=== PATIENT | male | born 1950 | race Caucasian/White ===

== ENCOUNTER 2020-05-28 08:33 | Day surgery (SDC) | payer MEDICARE, BC ==
[~2020-05-28] VITALS: Ht 182.9 cm; Wt 80.0 kg
[2020-05-28 09:03] LABS: CALC OSMOLALITY 271 mosm/kg (275-300); CALCIUM 9.8 mg/dL (8.5-10.1); CARBON DIOXIDE 27.2 mmol/L (21.0-32.0); CHLORIDE - SERUM 101 mmol/L (98-107); GLUCOSE 93 mg/dL (74-106); POTASSIUM - SERUM 3.9 mmol/L (3.5-5.1); SODIUM 135 mmol/L (136-145); UREA NITROGEN 19 mg/dL (7-18); eGFR NON AFRICAN AMERICAN 78 mL/min (90-120)
[2020-05-28 09:07] LABS: BASOPHILS 0.3 % (0-2); EOSINOPHILS 3.1 % (0-7); HEMOGLOBIN 14.2 g/dL (13.5-17.5); IMMATURE GRANULOCYTES 1.1 % (0-5); LYMPHOCYTES 31.4 % (15-50); MCH 31.3 pg (26.0-34.0); MCV 94.7 fL (80.0-100.0); MEAN PLATELET VOLUME 9.4 fL (7.4-10.4); MONOCYTES 7.9 % (2-11); NEUTROPHILS 56.2 % (40-80); PLATELET COUNT 254 10x3/uL (130-400); RBC 4.54 10x6/uL (4.20-6.10); RDW 16.1 % (11.5-14.5); WBC 12.3 10x3/uL (4.8-10.8)
[2020-05-28] MEDS ORDERED: NORVASC5 MG PO (09:44)
[2020-05-28] MEDS ORDERED: LEVOXYL100 MCG PO (09:45)
[2020-05-28] MEDS ORDERED: LIPITOR80 MG PO (09:45)
[2020-05-28] MEDS ORDERED: BAYER ASPIRIN325 MG PO (09:45)
[2020-05-28 09:46] VITALS: Ht 182.9 cm; Wt 80.0 kg
--- NOTE | 2020-05-28 13:12 | NUR ---
1247 DRESSED. AWAKE & ALERT. GIVEN DISCHARGE INFORMATION INCLUDING: MED REC, SHEET LISTING NSAIDS TO AVOID, HIGH FIBER DIET HANDOUT, & [facility] POST ENDOSCOPIC D/C INSTRUCTIONS. PT & VOICED UNDERSTANDING. TO PRIVATE CAR PER WHEELCHAIR BY THIS NURSE. HOME WITH . José Miguel PETER R.N.
--- NOTE | 2020-05-29 15:39 | OP ---
PATIENT NAME: JANE ANGUIANO MEDICAL RECORD: [id number] :48 LOCATION:[facility] ADMISSION DATE: SURGEON: AHMET VILLATORO DO DATE OF OPERATION: 05/28/2020 PROCEDURE: Colonoscopy with polypectomy. INDICATION FOR PROCEDURE: Abnormal findings on CT. SCOPE: Olympus video pediatric colonoscope. MEDICATIONS: Propofol 400 mg IV per anesthesia. WITHDRAWAL TIME: 32 minutes. ESTIMATED BLOOD LOSS: Minimal. COMPLICATIONS: None immediate. FINDINGS: Informed consent was given. The patient was made comfortable with the above medication. After reaching an adequate level of sedation by slow IV push, the patient was placed on his left side. A digital rectal examination was performed and was normal. The endoscope was then advanced under direct visualization through the rectum to the cecum, confirmed by the presence of the appendiceal orifice and ileocecal valve. The endoscope was slowly withdrawn and mucosa was carefully examined. The prep quality was good. There were a total of 11 polyps removed on today's examination. Four were removed from the ascending colon. They were a mixed type of flat and sessile polyps. They were removed using a combination of endoscopic mucosal resection utilizing a saline pillow and hot snare removal as well as a hot snare polypectomy. One of these polyps was large enough that it required 2 endoclips for tissue positioning after removal of the polyp itself. The polyps ranged in size from 4 mm to 1.2 cm. In the transverse colon, there were 4 separate polyps, which were mixed types between flat and sessile polyps. They ranged in size from 4 mm to 9 mm. Three were removed using a hot snare and the largest was removed using endoscopic mucosal resection technique utilizing a saline pillow followed by hot snare polypectomy and endoclip times 1 for tissue positioning. In the descending colon, there were 3 separate benign-appearing sessile polyps, which ranged in size from 4 to 7 mm in diameter. They were all removed using a hot snare. There was evidence of moderate diverticulosis involving the descending and sigmoid colon. Retroflexion was performed in the rectum with visualization of grade I internal hemorrhoids without bleeding. The endoscope was withdrawn from the patient. The patient tolerated the procedure well and there were no complications. IMPRESSION: 1. Eleven polyps as described above, removed using a combination of EMR technique and hot snare polypectomy as well as endoclipping times 3. 2. Moderate diverticulosis of the descending and sigmoid colon. 3. Grade I internal hemorrhoids without bleeding. PLAN AND RECOMMENDATIONS: 1. Discharge home when recovery parameters are met. 2. Follow up biopsy specimen results. 3. High-fiber diet. OPERATIVE REPORT [id number] JANE ANGUIANO 4. Continue current medications. 5. Recall colonoscopy in 1 year. NTS:[id number] Voice Confirmation ID: [id number] DOCUMENT ID: [id number] AHMET VILLATORO DO at 1539 CC: [id number] DICTATION DATE: 05/28/20 1144 TELEGRAPH DISPATCHER: 05/28/207 [facility] 05/28/20 [id number] [place] [address]
== END 2020-05-28 12:47 | disposition home or self-care (01) ==
LOC: D.OPS 08:33
PROVIDERS: Anesthesiology; ATTEND Internal Medicine Gastroenterology
DX: K63.5 Polyp of colon (principal); K74.60 Unspecified cirrhosis of liver; R93.89 Abnormal findings on diagnostic imaging of other specified body structures